=== PATIENT | male | born 1955 | race African-American/Black ===

== ENCOUNTER 2022-10-06 14:52 | Inpatient (IN) | payer OTHER ==
[2022-10-06 18:05] VITALS: BMI 25.0
[2022-10-06] MEDS ORDERED: P-EPHED 60MG/TRIPROLIDI 2.5MG TABLET PO PRN (20:30)
[2022-10-06] MEDS ORDERED: guaiFENesin 600 MG TABLET.ER (FP) PO PRN (20:30)
[2022-10-06] MEDS ORDERED: BENZOCAINE/MENTHOL (CHLORASEPTIC ) LOZENGE MM PRN (20:30)
[2022-10-06] MEDS ORDERED: POLYETHYLENE GLYCOL (HEALTHYLAX) 3350 17 GM PACKET PO PRN (20:30)
[2022-10-06] MEDS ORDERED: TUBERCULIN PPD 5 TU/0.1ML SYRINGE (IN PATIENT USE ONLY) ID ONE (20:30)
[2022-10-06] MEDS ORDERED: NICOTINE POLACRILEX 2 MG GUM BUC PRN (20:30)
[2022-10-06] MEDS ORDERED: MAGNESIUM HYDROX 2400MG/30ML ORAL SUSPENSION 30 ML CUP PO PRN (20:30)
[2022-10-06] MEDS ORDERED: COLLOIDAL OATMEAL 1 BAR EACH TP PRN (20:30)
[2022-10-06] MEDS ORDERED: BENZONATATE 200 MG CAPSULE PO PRN (20:30)
[2022-10-06] MEDS ORDERED: MAG HYDROX/AL HYDROX/SIMETH 30 ML UNIT-DOSE CUP PO PRN (20:30)
[2022-10-06] MEDS ORDERED: LOPERAMIDE HCL 2 MG CAPSULE PO PRN (20:30)
[2022-10-06] MEDS ORDERED: AMMONIUM LACTATE 12% LOTION 225 GM BOTTLE TP PRN (20:30)
[2022-10-06] MEDS ORDERED: NICOTINE 10 MG CARTRIDGE (INHALER) IH PRN (20:30)
[2022-10-06] MEDS: METOPROLOL TARTRATE 50 MG TABLET (FP) PO SCH (22:34)
[2022-10-06] MEDS: ATORVASTATIN CA 20 MG TABLET (FP) PO SCH (22:34)
[2022-10-06] MEDS: THIAMINE HCL 100 MG TABLET (FP) PO SCH (22:35)
[2022-10-06] MEDS: hydrALAZINE HCL 25 MG TABLET (FP) PO SCH (22:38)
[2022-10-06] MEDS ORDERED: ASPIRIN COATED 81 MG TABLET.EC PO ONE (23:00)
[2022-10-07] MEDS: ASPIRIN COATED 81 MG TABLET.EC PO SCH (10:02)
[2022-10-07] MEDS: PRENATAL VITAMINS W/ FOLIC ACID TABLET (FP) PO SCH (10:02)
[2022-10-07] MEDS: HYDROCHLOROTHIAZIDE 12.5 MG CAPSULE (FP) PO SCH (10:02)
[2022-10-07] MEDS: METOPROLOL TARTRATE 50 MG TABLET (FP) PO SCH ×2 (10:03→21:29)
[2022-10-07] MEDS: hydrALAZINE HCL 25 MG TABLET (FP) PO SCH ×2 (10:14→22:06)
[2022-10-07 12:45] LABS: BLOOD UREA NITROGEN 18.4 mg/dL (7-18); CALCIUM 8.9 mg/dL (8.5-10.1)
[2022-10-07 12:46] LABS: ALBUMIN 2.9 g/dl (3.4-5.0)
[2022-10-07 12:47] LABS: HEMATOCRIT 37.9 % (35.4-49); HEMOGLOBIN 12.9 GM/dL (11.7-16.9); MCH 31.1 pg (25.7-33.7); MCHC 33.9 g/dl (32.0-35.9); MEAN CELL VOLUME 91.6 fl (80-96); PLATELET COUNT 321 10^3/uL (134-434); RBC 4.14 M/mm3 (4.00-5.60); WHITE BLOOD COUNT 5.5 K/mm3 (4.0-10.0)
[2022-10-07 12:50] LABS: BILIRUBIN,TOTAL 0.4 mg/dL (0.2-1)
[2022-10-07 12:56] LABS: CREATININE 1.1 mg/dL (0.55-1.3)
[2022-10-07 12:57] LABS: TOT PROT 6.3 g/dl (6.4-8.2)
[2022-10-07 13:05] LABS: SYPHILIS W/ RPR CONF NON-REACTIVE (NONREACTIVE)
[2022-10-07 13:19] LABS: EPI CELLS >36 /uL (0-25.1); HYALINE CASTS 3 /uL (0-3.1); URINE APPEARANCE CLEAR; URINE BACTERIA 26 /uL (0-1359); URINE BILIRUBIN NEGATIVE (NEGATIVE); URINE COLOR YELLOW; URINE GLUCOSE (UA) NEGATIVE (NEGATIVE); URINE KETONE NEGATIVE (NEGATIVE); URINE LEUK ESTERASE TRACE (NEGATIVE); URINE NITRITE NEGATIVE (NEGATIVE); URINE PROTEIN TRACE (NEGATIVE); URINE RBC 19 /uL (0-23.9); URINE WBC 56 /uL (0-25.8)
[2022-10-07] MEDS: ATORVASTATIN CA 20 MG TABLET (FP) PO SCH (21:29)
[2022-10-07] MEDS: MELATONIN 5 MG TABLETS PO PRN (21:29)
[2022-10-07] MEDS: THIAMINE HCL 100 MG TABLET (FP) PO SCH (21:29)
[2022-10-08] MEDS: PRENATAL VITAMINS W/ FOLIC ACID TABLET (FP) PO SCH (09:17)
[2022-10-08] MEDS: METOPROLOL TARTRATE 50 MG TABLET (FP) PO SCH ×2 (09:17→21:34)
[2022-10-08] MEDS: HYDROCHLOROTHIAZIDE 12.5 MG CAPSULE (FP) PO SCH (09:18)
[2022-10-08] MEDS: IBUPROFEN 400 MG TABLET (FP) PO PRN (09:18)
[2022-10-08] MEDS: ASPIRIN COATED 81 MG TABLET.EC PO SCH (09:18)
[2022-10-08] MEDS: hydrALAZINE HCL 25 MG TABLET (FP) PO SCH ×2 (10:55→21:34)
[2022-10-08] MEDS: MELATONIN 5 MG TABLETS PO PRN (21:35)
[2022-10-08] MEDS: THIAMINE HCL 100 MG TABLET (FP) PO SCH (21:35)
[2022-10-08] MEDS: ATORVASTATIN CA 20 MG TABLET (FP) PO SCH (22:01)
[2022-10-09] MEDS: IBUPROFEN 400 MG TABLET (FP) PO PRN ×3 (06:40→21:29)
[2022-10-09] MEDS: ASPIRIN COATED 81 MG TABLET.EC PO SCH (10:08)
[2022-10-09] MEDS: HYDROCHLOROTHIAZIDE 12.5 MG CAPSULE (FP) PO SCH (10:08)
[2022-10-09] MEDS: PRENATAL VITAMINS W/ FOLIC ACID TABLET (FP) PO SCH (10:08)
[2022-10-09] MEDS ORDERED: NICOTINE POLACRILEX 4 MG GUM BUC PRN (10:24)
[2022-10-09] MEDS ORDERED: LIDOCAINE 5% TOPICAL PATCH TP SCH (11:45)
[2022-10-09] MEDS: BACLOFEN 10 MG TABLET (FP) PO PRN (11:51)
[2022-10-09] MEDS: hydrALAZINE HCL 25 MG TABLET (FP) PO SCH ×2 (12:23→21:28)
[2022-10-09] MEDS: THIAMINE HCL 100 MG TABLET (FP) PO SCH (21:28)
[2022-10-09] MEDS: ATORVASTATIN CA 20 MG TABLET (FP) PO SCH (21:28)
[2022-10-09] MEDS: MELATONIN 5 MG TABLETS PO PRN (21:28)
[2022-10-09] MEDS: LIDOCAINE PATCH REMOVAL MC SCH (21:29)
[2022-10-10] MEDS: BACLOFEN 10 MG TABLET (FP) PO PRN (06:29)
[2022-10-10] MEDS: IBUPROFEN 400 MG TABLET (FP) PO PRN ×3 (06:29→21:10)
[2022-10-10] MEDS ORDERED: LISINOPRIL 5 MG TABLET PO ONE (09:33)
[2022-10-10] MEDS ORDERED: ATORVASTATIN CA 20 MG TABLET (FP) PO ONE (09:46)
[2022-10-10] MEDS ORDERED: hydrALAZINE HCL 25 MG TABLET (FP) PO ONE (10:00)
[2022-10-10] MEDS ORDERED: HYDROCHLOROTHIAZIDE 25 MG TABLET (FP) PO ONE (10:00)
[2022-10-10] MEDS ORDERED: ASPIRIN COATED 81 MG TABLET.EC PO ONE (10:00)
[2022-10-10] MEDS: PRENATAL VITAMINS W/ FOLIC ACID TABLET (FP) PO SCH (10:23)
[2022-10-10] MEDS: LIDOCAINE 5% TOPICAL PATCH TP SCH (10:24)
[2022-10-10] MEDS: hydrALAZINE HCL 25 MG TABLET (FP) PO SCH (18:12)
[2022-10-10] MEDS: THIAMINE HCL 100 MG TABLET (FP) PO SCH (21:10)
[2022-10-10] MEDS: MELATONIN 5 MG TABLETS PO PRN (21:10)
[2022-10-10] MEDS: LIDOCAINE PATCH REMOVAL MC SCH (21:11)
[2022-10-11] MEDS: HYDROCHLOROTHIAZIDE 12.5 MG CAPSULE (FP) PO SCH (06:26)
[2022-10-11] MEDS: ATORVASTATIN CA 20 MG TABLET (FP) PO SCH (06:26)
[2022-10-11] MEDS: ASPIRIN COATED 81 MG TABLET.EC PO SCH (06:26)
[2022-10-11] MEDS: hydrALAZINE HCL 25 MG TABLET (FP) PO SCH ×2 (06:26→18:41)
[2022-10-11] MEDS: LIDOCAINE 5% TOPICAL PATCH TP SCH (06:27)
[2022-10-11] MEDS: PRENATAL VITAMINS W/ FOLIC ACID TABLET (FP) PO SCH (10:15)
[2022-10-11] MEDS: IBUPROFEN 400 MG TABLET (FP) PO PRN ×2 (10:17→21:28)
[2022-10-11] MEDS: LISINOPRIL 20 MG TABLET PO SCH (16:57)
[2022-10-11] MEDS: metFORMIN HCL 500 MG TABLET (FP) PO SCH (17:00)
[2022-10-11] MEDS: THIAMINE HCL 100 MG TABLET (FP) PO SCH (21:27)
[2022-10-11] MEDS: BACLOFEN 10 MG TABLET (FP) PO PRN (21:27)
[2022-10-11] MEDS: MELATONIN 5 MG TABLETS PO PRN (21:28)
[2022-10-11] MEDS: LIDOCAINE PATCH REMOVAL MC SCH (21:28)
[2022-10-12] MEDS: HYDROCHLOROTHIAZIDE 12.5 MG CAPSULE (FP) PO SCH (06:15)
[2022-10-12] MEDS: ASPIRIN COATED 81 MG TABLET.EC PO SCH (06:15)
[2022-10-12] MEDS: ATORVASTATIN CA 20 MG TABLET (FP) PO SCH (06:16)
[2022-10-12] MEDS: hydrALAZINE HCL 25 MG TABLET (FP) PO SCH ×2 (06:18→18:46)
[2022-10-12] MEDS: LIDOCAINE 5% TOPICAL PATCH TP SCH (07:49)
[2022-10-12] MEDS: metFORMIN HCL 500 MG TABLET (FP) PO SCH (07:50)
[2022-10-12] MEDS: PRENATAL VITAMINS W/ FOLIC ACID TABLET (FP) PO SCH (10:22)
[2022-10-12] MEDS: LISINOPRIL 20 MG TABLET PO SCH (10:22)
[2022-10-12] MEDS: BACLOFEN 10 MG TABLET (FP) PO PRN (13:09)
[2022-10-12] MEDS: IBUPROFEN 400 MG TABLET (FP) PO PRN ×2 (13:09→18:47)
[2022-10-12] MEDS: MELATONIN 5 MG TABLETS PO PRN (21:28)
[2022-10-12] MEDS: THIAMINE HCL 100 MG TABLET (FP) PO SCH (21:28)
[2022-10-12] MEDS: LIDOCAINE PATCH REMOVAL MC SCH (21:28)
[2022-10-13] MEDS: ATORVASTATIN CA 20 MG TABLET (FP) PO SCH (06:37)
[2022-10-13] MEDS: HYDROCHLOROTHIAZIDE 12.5 MG CAPSULE (FP) PO SCH (06:37)
[2022-10-13] MEDS: hydrALAZINE HCL 25 MG TABLET (FP) PO SCH ×2 (06:37→17:53)
[2022-10-13] MEDS: ASPIRIN COATED 81 MG TABLET.EC PO SCH (06:37)
[2022-10-13] MEDS: metFORMIN HCL 500 MG TABLET (FP) PO SCH (06:37)
[2022-10-13] MEDS: LIDOCAINE 5% TOPICAL PATCH TP SCH (06:38)
[2022-10-13] MEDS: PRENATAL VITAMINS W/ FOLIC ACID TABLET (FP) PO SCH (09:42)
[2022-10-13] MEDS: LISINOPRIL 20 MG TABLET PO SCH (09:49)
[2022-10-13] MEDS: IBUPROFEN 400 MG TABLET (FP) PO PRN (17:55)
[2022-10-13] MEDS: THIAMINE HCL 100 MG TABLET (FP) PO SCH (22:13)
[2022-10-13] MEDS: LIDOCAINE PATCH REMOVAL MC SCH (22:13)
[2022-10-14] MEDS: hydrALAZINE HCL 25 MG TABLET (FP) PO SCH ×2 (06:57→18:29)
[2022-10-14] MEDS: ATORVASTATIN CA 20 MG TABLET (FP) PO SCH (06:57)
[2022-10-14] MEDS: ASPIRIN COATED 81 MG TABLET.EC PO SCH (06:58)
[2022-10-14] MEDS: LIDOCAINE 5% TOPICAL PATCH TP SCH (06:58)
[2022-10-14] MEDS: HYDROCHLOROTHIAZIDE 12.5 MG CAPSULE (FP) PO SCH (06:58)
[2022-10-14] MEDS: metFORMIN HCL 500 MG TABLET (FP) PO SCH (06:58)
[2022-10-14] MEDS: LISINOPRIL 20 MG TABLET PO SCH (10:14)
[2022-10-14] MEDS: PRENATAL VITAMINS W/ FOLIC ACID TABLET (FP) PO SCH (10:37)
[2022-10-14] MEDS: IBUPROFEN 400 MG TABLET (FP) PO PRN (18:30)
[2022-10-14] MEDS: THIAMINE HCL 100 MG TABLET (FP) PO SCH (22:15)
[2022-10-14] MEDS: LIDOCAINE PATCH REMOVAL MC SCH (22:15)
[2022-10-15] MEDS: hydrALAZINE HCL 25 MG TABLET (FP) PO SCH ×2 (06:17→18:33)
[2022-10-15] MEDS: ATORVASTATIN CA 20 MG TABLET (FP) PO SCH (06:17)
[2022-10-15] MEDS: HYDROCHLOROTHIAZIDE 12.5 MG CAPSULE (FP) PO SCH (06:17)
[2022-10-15] MEDS: LIDOCAINE 5% TOPICAL PATCH TP SCH (06:17)
[2022-10-15] MEDS: ASPIRIN COATED 81 MG TABLET.EC PO SCH (06:17)
[2022-10-15] MEDS: metFORMIN HCL 500 MG TABLET (FP) PO SCH (06:17)
[2022-10-15] MEDS: PRENATAL VITAMINS W/ FOLIC ACID TABLET (FP) PO SCH (12:23)
[2022-10-15] MEDS: LISINOPRIL 20 MG TABLET PO SCH (12:23)
[2022-10-15] MEDS: IBUPROFEN 400 MG TABLET (FP) PO PRN (18:35)
[2022-10-15] MEDS: THIAMINE HCL 100 MG TABLET (FP) PO SCH (22:05)
[2022-10-15] MEDS: LIDOCAINE PATCH REMOVAL MC SCH (22:06)
[2022-10-16] MEDS: ATORVASTATIN CA 20 MG TABLET (FP) PO SCH (06:13)
[2022-10-16] MEDS: HYDROCHLOROTHIAZIDE 12.5 MG CAPSULE (FP) PO SCH (06:14)
[2022-10-16] MEDS: hydrALAZINE HCL 25 MG TABLET (FP) PO SCH ×2 (06:14→18:13)
[2022-10-16] MEDS: ASPIRIN COATED 81 MG TABLET.EC PO SCH (06:14)
[2022-10-16] MEDS: LIDOCAINE 5% TOPICAL PATCH TP SCH (06:14)
[2022-10-16] MEDS: metFORMIN HCL 500 MG TABLET (FP) PO SCH (07:10)
[2022-10-16] MEDS: LISINOPRIL 20 MG TABLET PO SCH (09:45)
[2022-10-16] MEDS: PRENATAL VITAMINS W/ FOLIC ACID TABLET (FP) PO SCH (09:45)
[2022-10-16] MEDS: IBUPROFEN 400 MG TABLET (FP) PO PRN (09:46)
[2022-10-16] MEDS: LIDOCAINE PATCH REMOVAL MC SCH (21:49)
[2022-10-16] MEDS: THIAMINE HCL 100 MG TABLET (FP) PO SCH (21:49)
[2022-10-17] MEDS: ATORVASTATIN CA 20 MG TABLET (FP) PO SCH (06:11)
[2022-10-17] MEDS: ASPIRIN COATED 81 MG TABLET.EC PO SCH (06:12)
[2022-10-17] MEDS: BACLOFEN 10 MG TABLET (FP) PO PRN (06:12)
[2022-10-17] MEDS: hydrALAZINE HCL 25 MG TABLET (FP) PO SCH ×2 (06:12→18:52)
[2022-10-17] MEDS: HYDROCHLOROTHIAZIDE 12.5 MG CAPSULE (FP) PO SCH (06:12)
[2022-10-17] MEDS: metFORMIN HCL 500 MG TABLET (FP) PO SCH (06:12)
[2022-10-17] MEDS: LIDOCAINE 5% TOPICAL PATCH TP SCH (06:13)
[2022-10-17] MEDS: PRENATAL VITAMINS W/ FOLIC ACID TABLET (FP) PO SCH (10:07)
[2022-10-17] MEDS: LISINOPRIL 20 MG TABLET PO SCH (10:07)
[2022-10-17] MEDS: MELATONIN 5 MG TABLETS PO PRN (21:38)
[2022-10-17] MEDS: LIDOCAINE PATCH REMOVAL MC SCH (21:38)
[2022-10-17] MEDS: THIAMINE HCL 100 MG TABLET (FP) PO SCH (21:38)
[2022-10-18] MEDS: metFORMIN HCL 500 MG TABLET (FP) PO SCH (06:31)
[2022-10-18] MEDS: ATORVASTATIN CA 20 MG TABLET (FP) PO SCH (06:31)
[2022-10-18] MEDS: hydrALAZINE HCL 25 MG TABLET (FP) PO SCH ×2 (06:31→18:12)
[2022-10-18] MEDS: HYDROCHLOROTHIAZIDE 12.5 MG CAPSULE (FP) PO SCH (06:31)
[2022-10-18] MEDS: ASPIRIN COATED 81 MG TABLET.EC PO SCH (06:32)
[2022-10-18] MEDS: LIDOCAINE 5% TOPICAL PATCH TP SCH (06:33)
[2022-10-18] MEDS: PRENATAL VITAMINS W/ FOLIC ACID TABLET (FP) PO SCH (10:34)
[2022-10-18] MEDS: LISINOPRIL 20 MG TABLET PO SCH (10:34)
[2022-10-18] MEDS: IBUPROFEN 400 MG TABLET (FP) PO PRN (10:37)
[2022-10-18] MEDS: THIAMINE HCL 100 MG TABLET (FP) PO SCH (21:48)
[2022-10-18] MEDS: LIDOCAINE PATCH REMOVAL MC SCH (21:48)
[2022-10-19] MEDS: metFORMIN HCL 500 MG TABLET (FP) PO SCH (07:04)
[2022-10-19] MEDS: HYDROCHLOROTHIAZIDE 12.5 MG CAPSULE (FP) PO SCH (07:04)
[2022-10-19] MEDS: ATORVASTATIN CA 20 MG TABLET (FP) PO SCH (07:04)
[2022-10-19] MEDS: ASPIRIN COATED 81 MG TABLET.EC PO SCH (07:04)
[2022-10-19] MEDS: hydrALAZINE HCL 25 MG TABLET (FP) PO SCH ×2 (07:04→17:33)
[2022-10-19] MEDS: LIDOCAINE 5% TOPICAL PATCH TP SCH (07:05)
[2022-10-19] MEDS: PRENATAL VITAMINS W/ FOLIC ACID TABLET (FP) PO SCH (10:03)
[2022-10-19] MEDS ORDERED: LIDOCAINE 5% TOPICAL PATCH TP ONE (10:50)
[2022-10-19] MEDS: LISINOPRIL 20 MG TABLET PO SCH (11:25)
[2022-10-19] MEDS: LIDOCAINE PATCH REMOVAL MC SCH ×2 (21:17→21:57)
[2022-10-19] MEDS: MELATONIN 5 MG TABLETS PO PRN (21:17)
[2022-10-19] MEDS: THIAMINE HCL 100 MG TABLET (FP) PO SCH (21:17)
[2022-10-20] MEDS: ATORVASTATIN CA 20 MG TABLET (FP) PO SCH (06:10)
[2022-10-20] MEDS: ASPIRIN COATED 81 MG TABLET.EC PO SCH (06:11)
[2022-10-20] MEDS: LIDOCAINE 5% TOPICAL PATCH TP SCH (06:57)
[2022-10-20] MEDS: HYDROCHLOROTHIAZIDE 12.5 MG CAPSULE (FP) PO SCH (06:57)
[2022-10-20] MEDS: hydrALAZINE HCL 25 MG TABLET (FP) PO SCH ×2 (06:57→18:50)
[2022-10-20] MEDS: metFORMIN HCL 500 MG TABLET (FP) PO SCH (06:59)
[2022-10-20] MEDS: PRENATAL VITAMINS W/ FOLIC ACID TABLET (FP) PO SCH (10:31)
[2022-10-20] MEDS: LISINOPRIL 20 MG TABLET PO SCH (10:31)
[2022-10-20] MEDS: THIAMINE HCL 100 MG TABLET (FP) PO SCH (22:26)
[2022-10-20] MEDS: LIDOCAINE PATCH REMOVAL MC SCH ×2 (22:32)
[2022-10-21] MEDS: ASPIRIN COATED 81 MG TABLET.EC PO SCH (06:21)
[2022-10-21] MEDS: HYDROCHLOROTHIAZIDE 12.5 MG CAPSULE (FP) PO SCH (06:21)
[2022-10-21] MEDS: ATORVASTATIN CA 20 MG TABLET (FP) PO SCH (06:21)
[2022-10-21] MEDS: hydrALAZINE HCL 25 MG TABLET (FP) PO SCH ×2 (06:21→18:32)
[2022-10-21] MEDS: metFORMIN HCL 500 MG TABLET (FP) PO SCH (06:21)
[2022-10-21] MEDS: LIDOCAINE 5% TOPICAL PATCH TP SCH (06:55)
[2022-10-21] MEDS: LISINOPRIL 20 MG TABLET PO SCH (09:58)
[2022-10-21] MEDS: PRENATAL VITAMINS W/ FOLIC ACID TABLET (FP) PO SCH (09:58)
[2022-10-21] MEDS: LIDOCAINE PATCH REMOVAL MC SCH ×2 (22:59→23:00)
[2022-10-21] MEDS: THIAMINE HCL 100 MG TABLET (FP) PO SCH (23:00)
[2022-10-22] MEDS: LIDOCAINE 5% TOPICAL PATCH TP SCH (06:29)
[2022-10-22] MEDS: ATORVASTATIN CA 20 MG TABLET (FP) PO SCH (06:29)
[2022-10-22] MEDS: HYDROCHLOROTHIAZIDE 12.5 MG CAPSULE (FP) PO SCH (06:29)
[2022-10-22] MEDS: metFORMIN HCL 500 MG TABLET (FP) PO SCH (06:29)
[2022-10-22] MEDS: hydrALAZINE HCL 25 MG TABLET (FP) PO SCH ×2 (06:30→18:04)
[2022-10-22] MEDS: ASPIRIN COATED 81 MG TABLET.EC PO SCH (06:30)
[2022-10-22] MEDS: PRENATAL VITAMINS W/ FOLIC ACID TABLET (FP) PO SCH (09:56)
[2022-10-22] MEDS: LISINOPRIL 20 MG TABLET PO SCH (09:56)
[2022-10-22] MEDS: LIDOCAINE PATCH REMOVAL MC SCH ×2 (21:59)
[2022-10-22] MEDS: THIAMINE HCL 100 MG TABLET (FP) PO SCH (21:59)
[2022-10-23] MEDS: HYDROCHLOROTHIAZIDE 12.5 MG CAPSULE (FP) PO SCH (06:22)
[2022-10-23] MEDS: ASPIRIN COATED 81 MG TABLET.EC PO SCH (06:22)
[2022-10-23] MEDS: ATORVASTATIN CA 20 MG TABLET (FP) PO SCH (06:22)
[2022-10-23] MEDS: hydrALAZINE HCL 25 MG TABLET (FP) PO SCH ×2 (06:22→17:35)
[2022-10-23] MEDS: LIDOCAINE 5% TOPICAL PATCH TP SCH (06:22)
[2022-10-23] MEDS: metFORMIN HCL 500 MG TABLET (FP) PO SCH (07:01)
[2022-10-23] MEDS: PRENATAL VITAMINS W/ FOLIC ACID TABLET (FP) PO SCH (10:04)
[2022-10-23] MEDS: LISINOPRIL 20 MG TABLET PO SCH (10:04)
[2022-10-23] MEDS: THIAMINE HCL 100 MG TABLET (FP) PO SCH (21:29)
[2022-10-23] MEDS: MELATONIN 5 MG TABLETS PO PRN (21:29)
[2022-10-23] MEDS: LIDOCAINE PATCH REMOVAL MC SCH ×2 (21:30)
[2022-10-24] MEDS: LIDOCAINE 5% TOPICAL PATCH TP SCH (06:24)
[2022-10-24] MEDS: metFORMIN HCL 500 MG TABLET (FP) PO SCH (06:25)
[2022-10-24] MEDS: ATORVASTATIN CA 20 MG TABLET (FP) PO SCH (06:25)
[2022-10-24] MEDS: HYDROCHLOROTHIAZIDE 12.5 MG CAPSULE (FP) PO SCH (06:25)
[2022-10-24] MEDS: ASPIRIN COATED 81 MG TABLET.EC PO SCH (06:25)
[2022-10-24] MEDS: hydrALAZINE HCL 25 MG TABLET (FP) PO SCH ×2 (06:25→17:26)
[2022-10-24] MEDS: PRENATAL VITAMINS W/ FOLIC ACID TABLET (FP) PO SCH (10:02)
[2022-10-24] MEDS: LISINOPRIL 20 MG TABLET PO SCH (10:02)
[2022-10-24] MEDS: LIDOCAINE PATCH REMOVAL MC SCH ×2 (22:07)
[2022-10-24] MEDS: THIAMINE HCL 100 MG TABLET (FP) PO SCH (22:07)
[2022-10-25] MEDS: LIDOCAINE 5% TOPICAL PATCH TP SCH (06:25)
[2022-10-25] MEDS: hydrALAZINE HCL 25 MG TABLET (FP) PO SCH ×2 (06:25→18:58)
[2022-10-25] MEDS: ASPIRIN COATED 81 MG TABLET.EC PO SCH (06:25)
[2022-10-25] MEDS: HYDROCHLOROTHIAZIDE 12.5 MG CAPSULE (FP) PO SCH (06:25)
[2022-10-25] MEDS: ATORVASTATIN CA 20 MG TABLET (FP) PO SCH (06:26)
[2022-10-25] MEDS: metFORMIN HCL 500 MG TABLET (FP) PO SCH (06:26)
[2022-10-25] MEDS: LISINOPRIL 20 MG TABLET PO SCH (10:05)
[2022-10-25] MEDS: PRENATAL VITAMINS W/ FOLIC ACID TABLET (FP) PO SCH (10:05)
[2022-10-25] MEDS: LIDOCAINE PATCH REMOVAL MC SCH ×2 (21:43)
[2022-10-25] MEDS: THIAMINE HCL 100 MG TABLET (FP) PO SCH (21:44)
[2022-10-26] MEDS: ATORVASTATIN CA 20 MG TABLET (FP) PO SCH (06:17)
[2022-10-26] MEDS: ASPIRIN COATED 81 MG TABLET.EC PO SCH (06:17)
[2022-10-26] MEDS: metFORMIN HCL 500 MG TABLET (FP) PO SCH (06:18)
[2022-10-26] MEDS: hydrALAZINE HCL 25 MG TABLET (FP) PO SCH ×2 (06:18→17:45)
[2022-10-26] MEDS: HYDROCHLOROTHIAZIDE 12.5 MG CAPSULE (FP) PO SCH (06:18)
[2022-10-26] MEDS: LIDOCAINE 5% TOPICAL PATCH TP SCH (06:20)
[2022-10-26] MEDS: PRENATAL VITAMINS W/ FOLIC ACID TABLET (FP) PO SCH (09:58)
[2022-10-26] MEDS: LISINOPRIL 20 MG TABLET PO SCH (09:58)
[2022-10-26] MEDS: IBUPROFEN 400 MG TABLET (FP) PO PRN (12:06)
[2022-10-26] MEDS: THIAMINE HCL 100 MG TABLET (FP) PO SCH (21:18)
[2022-10-26] MEDS: LIDOCAINE PATCH REMOVAL MC SCH ×2 (21:18→21:19)
[2022-10-26] MEDS: MELATONIN 5 MG TABLETS PO PRN (21:18)
[2022-10-27] MEDS: ATORVASTATIN CA 20 MG TABLET (FP) PO SCH (06:06)
[2022-10-27] MEDS: hydrALAZINE HCL 25 MG TABLET (FP) PO SCH ×2 (06:06→18:03)
[2022-10-27] MEDS: HYDROCHLOROTHIAZIDE 12.5 MG CAPSULE (FP) PO SCH (06:06)
[2022-10-27] MEDS: ASPIRIN COATED 81 MG TABLET.EC PO SCH (06:06)
[2022-10-27] MEDS: metFORMIN HCL 500 MG TABLET (FP) PO SCH (07:22)
[2022-10-27] MEDS: LIDOCAINE 5% TOPICAL PATCH TP SCH (08:00)
[2022-10-27] MEDS: PRENATAL VITAMINS W/ FOLIC ACID TABLET (FP) PO SCH (09:02)
[2022-10-27] MEDS: LISINOPRIL 20 MG TABLET PO SCH (09:02)
[2022-10-27] MEDS: ACETAMINOPHEN 325 MG TABLET (FP) PO PRN (13:37)
[2022-10-27] MEDS: LIDOCAINE PATCH REMOVAL MC SCH ×2 (21:24→21:25)
[2022-10-27] MEDS: MELATONIN 5 MG TABLETS PO PRN (21:24)
[2022-10-27] MEDS: THIAMINE HCL 100 MG TABLET (FP) PO SCH (21:24)
[2022-10-28] MEDS: ASPIRIN COATED 81 MG TABLET.EC PO SCH (06:20)
[2022-10-28] MEDS: hydrALAZINE HCL 25 MG TABLET (FP) PO SCH ×2 (06:20→17:06)
[2022-10-28] MEDS: ATORVASTATIN CA 20 MG TABLET (FP) PO SCH (06:20)
[2022-10-28] MEDS: metFORMIN HCL 500 MG TABLET (FP) PO SCH (06:21)
[2022-10-28] MEDS: HYDROCHLOROTHIAZIDE 12.5 MG CAPSULE (FP) PO SCH (06:21)
[2022-10-28] MEDS: LIDOCAINE 5% TOPICAL PATCH TP SCH (07:07)
[2022-10-28] MEDS: PRENATAL VITAMINS W/ FOLIC ACID TABLET (FP) PO SCH (09:32)
[2022-10-28] MEDS: LISINOPRIL 20 MG TABLET PO SCH (09:33)
[2022-10-28] MEDS: THIAMINE HCL 100 MG TABLET (FP) PO SCH (22:02)
[2022-10-28] MEDS: MELATONIN 5 MG TABLETS PO PRN (22:02)
[2022-10-28] MEDS: LIDOCAINE PATCH REMOVAL MC SCH ×2 (22:05)
[2022-10-29] MEDS: HYDROCHLOROTHIAZIDE 12.5 MG CAPSULE (FP) PO SCH (05:54)
[2022-10-29] MEDS: ASPIRIN COATED 81 MG TABLET.EC PO SCH (05:56)
[2022-10-29] MEDS: hydrALAZINE HCL 25 MG TABLET (FP) PO SCH ×2 (05:56→17:08)
[2022-10-29] MEDS: ATORVASTATIN CA 20 MG TABLET (FP) PO SCH (06:03)
[2022-10-29] MEDS: LIDOCAINE 5% TOPICAL PATCH TP SCH (06:16)
[2022-10-29] MEDS: metFORMIN HCL 500 MG TABLET (FP) PO SCH (06:44)
[2022-10-29] MEDS: PRENATAL VITAMINS W/ FOLIC ACID TABLET (FP) PO SCH (09:33)
[2022-10-29] MEDS: LISINOPRIL 20 MG TABLET PO SCH (09:33)
[2022-10-29] MEDS: THIAMINE HCL 100 MG TABLET (FP) PO SCH (21:48)
[2022-10-29] MEDS: LIDOCAINE PATCH REMOVAL MC SCH ×2 (21:48)
[2022-10-29] MEDS: MELATONIN 5 MG TABLETS PO PRN (21:49)
[2022-10-30] MEDS: hydrALAZINE HCL 25 MG TABLET (FP) PO SCH ×2 (06:32→17:59)
[2022-10-30] MEDS: ASPIRIN COATED 81 MG TABLET.EC PO SCH (06:33)
[2022-10-30] MEDS: metFORMIN HCL 500 MG TABLET (FP) PO SCH (06:33)
[2022-10-30] MEDS: HYDROCHLOROTHIAZIDE 12.5 MG CAPSULE (FP) PO SCH (06:33)
[2022-10-30] MEDS: LIDOCAINE 5% TOPICAL PATCH TP SCH (06:35)
[2022-10-30] MEDS: PRENATAL VITAMINS W/ FOLIC ACID TABLET (FP) PO SCH (09:36)
[2022-10-30] MEDS: LISINOPRIL 20 MG TABLET PO SCH (09:36)
[2022-10-30] MEDS: ATORVASTATIN CA 20 MG TABLET (FP) PO SCH (09:37)
[2022-10-30] MEDS: THIAMINE HCL 100 MG TABLET (FP) PO SCH (21:29)
[2022-10-30] MEDS: MELATONIN 5 MG TABLETS PO PRN (21:29)
[2022-10-30] MEDS: IBUPROFEN 400 MG TABLET (FP) PO PRN (21:30)
[2022-10-30] MEDS: LIDOCAINE PATCH REMOVAL MC SCH ×2 (21:30→21:31)
[2022-10-31] MEDS: metFORMIN HCL 500 MG TABLET (FP) PO SCH (06:10)
[2022-10-31] MEDS: HYDROCHLOROTHIAZIDE 12.5 MG CAPSULE (FP) PO SCH (06:11)
[2022-10-31] MEDS: hydrALAZINE HCL 25 MG TABLET (FP) PO SCH ×2 (06:11→17:06)
[2022-10-31] MEDS: ATORVASTATIN CA 20 MG TABLET (FP) PO SCH (06:11)
[2022-10-31] MEDS: ASPIRIN COATED 81 MG TABLET.EC PO SCH (06:11)
[2022-10-31] MEDS: LIDOCAINE 5% TOPICAL PATCH TP SCH (06:13)
[2022-10-31] MEDS: LISINOPRIL 20 MG TABLET PO SCH (09:18)
[2022-10-31] MEDS: PRENATAL VITAMINS W/ FOLIC ACID TABLET (FP) PO SCH (09:18)
[2022-10-31] MEDS: ACETAMINOPHEN 325 MG TABLET (FP) PO PRN (09:19)
[2022-10-31 09:25] VITALS: RESP 18
[2022-10-31] MEDS: MELATONIN 5 MG TABLETS PO PRN (21:24)
[2022-10-31] MEDS: LIDOCAINE PATCH REMOVAL MC SCH ×2 (21:24→21:25)
[2022-10-31] MEDS: THIAMINE HCL 100 MG TABLET (FP) PO SCH (21:24)
[2022-11-01] MEDS: ATORVASTATIN CA 20 MG TABLET (FP) PO SCH (06:02)
[2022-11-01] MEDS: ASPIRIN COATED 81 MG TABLET.EC PO SCH (06:02)
[2022-11-01] MEDS: HYDROCHLOROTHIAZIDE 12.5 MG CAPSULE (FP) PO SCH (06:02)
[2022-11-01] MEDS: metFORMIN HCL 500 MG TABLET (FP) PO SCH (06:02)
[2022-11-01] MEDS: hydrALAZINE HCL 25 MG TABLET (FP) PO SCH (06:02)
[2022-11-01] MEDS: LIDOCAINE 5% TOPICAL PATCH TP SCH (06:02)
[2022-11-01 07:07] VITALS: TEMP 97.8
[2022-11-01] MEDS: LISINOPRIL 20 MG TABLET PO SCH (09:23)
[2022-11-01] MEDS: PRENATAL VITAMINS W/ FOLIC ACID TABLET (FP) PO SCH (09:24)
[2022-11-01 09:25] VITALS: BP 125/67; PULSE 84
== END 2022-11-01 10:15 | disposition home or self-care (01) | DRG 895 ==
LOC: YASAS 14:52 → Y3W 21:52
PROVIDERS: ADMIT Allergy & Immunology; ATTEND Psychiatry & Neurology Pain Medicine
PROC: HZ42ZZZ Group Counseling for Substance Abuse Treatment, Cognitive-Behavioral (ICD-10-PCS; principal; 2022-10-06)
DX: F14.20 Cocaine dependence, uncomplicated (principal); F17.210 Nicotine dependence, cigarettes, uncomplicated; I25.10 Atherosclerotic heart disease of native coronary artery without angina pectoris; I10 Essential (primary) hypertension; I25.2 Old myocardial infarction; E11.9 Type 2 diabetes mellitus without complications; Z79.84 Long term (current) use of oral hypoglycemic drugs; M54.50 Low back pain, unspecified; G89.29 Other chronic pain
CPT/HCPCS: 36415; 80053; 81003; 82962; 85027; 86780; 86803; 87635; 87811; J0475